=== PATIENT | male | born 1985 | race Hispanic/Latino ===

== ENCOUNTER 2017-08-12 15:47 | Emergency (ER) | payer SELFPAY ==
[2017-08-12 15:55] VITALS: BP 124/64
--- NOTE | 2017-08-12 23:43 | Event Note ---
Attempted to evaluate the patient but he was not there.
== END 2017-08-13 00:07 | disposition left against medical advice (07) ==
LOC: ED 15:47
DX: M54.9 Dorsalgia, unspecified (principal); Z53.21 Procedure and treatment not carried out due to patient leaving prior to being seen by health care provider

== ENCOUNTER 2018-04-06 17:41 | Emergency (ER) | payer SELFPAY ==
[2018-04-06 17:56] VITALS: BP 141/73
[2018-04-06 18:59] LABS: Bilirubin,Urine NEG (Negative); Blood,Urine NEG (Negative); Color,Urine Yellow (Yellow); Mucus,Urine FEW /HPF; Protein,Urine <15 mg/dL mg/dL (Negative)
--- NOTE | 2018-04-06 21:02 | Emergency Department Report ---
Chief Complaint: Urogenital-Male Stated Complaint: DISHARGE, URINATION Time Seen by Provider: 04/06/18 20:54 - HPI History of Present Illness: 33-year-old male reports that he is having burning and bloody discharge from his penis. Patient reports this is been going on for 2 days and he was not able to take off work to go to the health department so he came here to be seen today. Patient denies any fever chills or nausea no vomiting no abdominal pain. - Exam Vital Signs: Vital Signs 04/06/18 17:52 Temperature 98.8 F Pulse Rate 70 Respiratory 16 Rate Blood Pressure 141/73 O2 Sat by Pulse 97 Oximetry Physical Exam: Patient is alert and oriented without acute distress. Patient had stable vital signs. Patient is able to ambulate without difficulties MSE screening note: Focused history and physical exam performed. Due to findings the following was ordered: Discussed the patient that this can be followed up by the health Department. We 'll give patient information to be followed up at at that time this is considered a non-medical emergency. ED Disposition for MSE Condition: Stable Referrals: PRIMARY CARE [Primary Care Provider] - 3-5 Days
== END 2018-04-06 21:03 | disposition left against medical advice (07) ==
LOC: ED 17:41
DX: R36.9 Urethral discharge, unspecified (principal)
CPT/HCPCS: 81001; 99283

== ENCOUNTER 2019-06-16 21:41 | Emergency (ER) | payer SELFPAY ==
--- NOTE | 2019-06-16 22:08 | Emergency Department Report ---
Blank Doc - Documentation Documentation: This is a 34-year-old male that presents with lower back pain. Denies any tra dory or injuries. Denies any urinary symptoms. This initial assessment/diagnostic orders/clinical plan/treatment(s) is/are subject to change based on patient's health status, clinical progression and re- assessment by fellow clinical providers in the ED. Further treatment and workup at subsequent clinical providers discretion. Patient/guardians urged not to elope from the ED as their condition may be serious if not clinically assessed and managed. Initial orders include: 1- Patient sent to [facility] for further evaluation and treatment
[2019-06-16 22:09] VITALS: BP 109/60
[2019-06-16] MEDS ORDERED: NORCO 5/325 PO ONE (23:41)
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
== END 2019-06-17 01:22 | disposition left against medical advice (07) ==
LOC: ED 21:41
DX: M54.5 Low back pain (principal); V89.2XXA Person injured in unspecified motor-vehicle accident, traffic, initial encounter; Y93.89 Activity, other specified; Y92.488 Other paved roadways as the place of occurrence of the external cause; Y99.8 Other external cause status
CPT/HCPCS: 99283